=== PATIENT | female | born 1975 | race Caucasian/White ===

== ENCOUNTER 2019-02-01 14:48 | Inpatient (IN) | payer OTHER ==
[~2019-02-01] VITALS: Ht 162.6 cm; Wt 61.7 kg
[2019-02-14] MEDS ORDERED: KETO10TA2 PO (08:16)
[2019-02-14] MEDS ORDERED: DOCUSATE SODIU100 MG PO (08:16)
== END 2019-02-14 09:43 | disposition home or self-care (01) | DRG 743 ==
LOC: SURG-SUITE 02-11 05:35 → O/R 02-11 05:35 → SURG-SUITE 02-11 11:01 → SURH 02-11 14:32 → SURG-SUITE 02-14 09:43
PROVIDERS: ADMIT Obstetrics & Gynecology
PROC: 0UT70ZZ Resection of Bilateral Fallopian Tubes, Open Approach (ICD-10-PCS; 2019-02-11)
PROC: 0TJB8ZZ Inspection of Bladder, Via Natural or Artificial Opening Endoscopic (ICD-10-PCS; 2019-02-11)
PROC: 0UT90ZZ Resection of Uterus, Open Approach (ICD-10-PCS; principal; 2019-02-11 15:30)
DX: D25.1 Intramural leiomyoma of uterus (principal); D25.0 Submucous leiomyoma of uterus; N73.6 Female pelvic peritoneal adhesions (postinfective); N72 Inflammatory disease of cervix uteri